=== PATIENT | male | born 1995 ===

== ENCOUNTER 2021-06-28 06:44 | Emergency (ER) | payer OTHER ==
[2021-06-28] MEDS ORDERED: IBUPROFEN 800 MG TAB PO ONE (07:09)
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
[2021-06-28 08:01] VITALS: BP 153/82
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
--- NOTE | 2021-06-28 08:02 | XRay Report ---
Left RIBS INDICATION: Injury FINDINGS: Lungs are clear heart size appears normal. No displaced rib fracture is seen. Signer Name: Jef Lovett MD Signed: 06/28/2021 7:57 AM Workstation Name: [id number]
== END 2021-06-28 11:40 ==
LOC: ED 06:44
DX: R07.81 Pleurodynia (principal); V89.2XXA Person injured in unspecified motor-vehicle accident, traffic, initial encounter; Y93.89 Activity, other specified; Y92.89 Other specified places as the place of occurrence of the external cause; Y99.8 Other external cause status
CPT/HCPCS: 71045; 99283